=== PATIENT | female | born 1995 | race Caucasian/White ===

== ENCOUNTER 2021-02-11 21:09 | Emergency (ER) | payer OTHER ==
[~2021-02-11] VITALS: Ht 154.9 cm; Wt 128.8 kg
[2021-02-11 21:19] VITALS: BP 117/79
--- NOTE | 2021-02-11 23:10 | NUR ---
PT SEEN AND EVALUATED BY DR. HOROWITZ
[2021-02-11] MEDS ORDERED: NAPR-54 PO (23:12)
--- NOTE | 2021-02-11 23:25 | NUR ---
NO NURSING CARE PROVIDED TO THIS PATIENT.
== END 2021-02-11 23:26 | disposition home or self-care (01) ==
LOC: MED 21:09
DX: S86.811A Strain of other muscle(s) and tendon(s) at lower leg level, right leg, initial encounter (principal); Z88.5 Allergy status to narcotic agent; Z88.8 Allergy status to other drugs, medicaments and biological substances; Z79.899 Other long term (current) drug therapy; X50.0XXA Overexertion from strenuous movement or load, initial encounter; Y93.89 Activity, other specified; Y92.89 Other specified places as the place of occurrence of the external cause; Y99.8 Other external cause status
CPT/HCPCS: 73562; 99283

== ENCOUNTER 2021-02-19 15:51 | Emergency (ER) | payer OTHER ==
[~2021-02-19] VITALS: Ht 157.5 cm; Wt 128.8 kg
[~2021-02-19 15:51] MED LIST: NAPR-54 PO
[2021-02-19 15:55] VITALS: BP 112/66
[2021-02-19] MEDS ORDERED: DICL20GE TP (16:10)
[2021-02-19] MEDS ORDERED: CAPS1ADH5 TP (16:10)
[2021-02-19] MEDS ORDERED: KETOROLAC 60 MG/2 ML VIAL IM ONE (16:10)
[2021-02-19 16:39] VITALS: BP 112/66
== END 2021-02-19 16:40 | disposition home or self-care (01) ==
LOC: MED 15:51
DX: S86.811A Strain of other muscle(s) and tendon(s) at lower leg level, right leg, initial encounter (principal); J45.909 Unspecified asthma, uncomplicated; Z88.5 Allergy status to narcotic agent; Z88.8 Allergy status to other drugs, medicaments and biological substances; Z79.899 Other long term (current) drug therapy; X50.0XXA Overexertion from strenuous movement or load, initial encounter; Y93.89 Activity, other specified; Y92.89 Other specified places as the place of occurrence of the external cause; Y99.8 Other external cause status
CPT/HCPCS: 29505; 96372; 99283; J1885

== ENCOUNTER 2021-05-23 10:47 | Emergency (ER) | payer OTHER ==
[~2021-05-23] VITALS: Ht 157.5 cm; Wt 98.0 kg
[~2021-05-23 10:47] MED LIST changes: +CAPS1ADH5 TP; +DICL20GE TP
[2021-05-23 10:56] VITALS: BP 141/57
--- NOTE | 2021-05-23 11:02 | NUR ---
Pt ambulated to bed 09.
--- NOTE | 2021-05-23 12:10 | NUR ---
LABS WERE DRAWN AND SENT TO LAB.
--- NOTE | 2021-05-23 12:14 | NUR ---
Ultrasound at bedside.
[2021-05-23 12:24] LABS: BASOPHILS % (AUTO) 0.2 % (0.0-2.0); EOSINOPHILS # (AUTO) 0.1 K/uL (0-0.4); EOSINOPHILS % (AUTO) 0.7 % (0.0-4.0); HEMATOCRIT 36.3 % (36-48); HEMOGLOBIN 11.9 g/dL (12.0-16.0); LYMPHOCYTES # (AUTO) 2.9 K/uL (2.5-16.5); LYMPHOCYTES % (AUTO) 35.5 % (20.5-51.1); MEAN CORPUSCULAR HEMOGLOBIN 26 pg (27-31); MEAN CORPUSCULAR HGB CONC 33 g/dL (33-37); MEAN CORPUSCULAR VOLUME 80.3 fL (80-94); MONOCYTES # (AUTO) 0.6 K/uL (0.8-1.0); MONOCYTES % (AUTO) 6.8 % (1.7-9.3); NEUTROPHILS # (AUTO) 4.6 K/uL (1.8-7.7); NEUTROPHILS % (AUTO) 56.8 % (42.2-75.2); PLATELET COUNT (AUTO) 218 K/uL (140-450); RED BLOOD CELL COUNT(AUTO) 4.52 MIL/uL (4.20-5.40); RED CELL DISTRIBUTION WIDTH 14.7 % (11.6-13.7); WHITE BLOOD COUNT (AUTO) 8.2 K/uL (4.8-10.8)
[2021-05-23 12:39] LABS: ALBUMIN 3.2 g/dL (3.4-5.0); CARBON DIOXIDE 24.5 mmol/L (21-32); CREATININE 0.7 mg/dL (0.6-1.3); POTASSIUM 3.5 mmol/L (3.5-5.1); TOTAL BILIRUBIN 0.3 mg/dL (0.0-1.0)
--- NOTE | 2021-05-23 13:06 | NUR ---
25 Y/O F BIB SELF FROM HOME, PATIENT PRESENTS TO ED WITH C/O RLQ ABDOMINAL PAIN RADIATING TO RIGHT LOWER BACK X 3 DAYS. DENIES N/V/D; SKIN IS PINK/WARM/DRY; AAOX4 WITH EVEN AND STEADY GAIT; LUNGS CLEAR BL; HR EVEN AND REGULAR; PT DENIES ANY FEVER, CP, SOB, OR COUGH AT THIS TIME; PATIENT STATES PAIN OF 7/10 AT THIS TIME; VSS; PATIENT POSITIONED FOR COMFORT; HOB ELEVATED; BEDRAILS UP X2; BED DOWN. ER MD MADE AWARE OF PT STATUS. PMH: ASTHMA ALLERGY: CODEINE, METOCLOPRAMIDE
[2021-05-23 13:48] LABS: APPEARANCE,URINE HAZY (CLEAR); BILIRUBIN,URINE NEGATIVE (NEGATIVE); BLOOD, URINE NEGATIVE (NEGATIVE); COLOR,URINE YELLOW (YELLOW); LEUKOCYTE ESTERASE ,URINE NEGATIVE (NEGATIVE); NITRITE, URINE NEGATIVE (NEGATIVE); UGLUCOSE NEGATIVE (NEGATIVE)
[2021-05-23 14:10] LABS: RBC,URINE 0-5 /HPF (0-5); WBC,URINE 0-5 /HPF (0-5)
[2021-05-23 14:11] LABS: CALCIUM OXALATE CRYSTALS,UR 30-50 /HPF (None Seen)
[2021-05-23 14:13] VITALS: BP 141/57
--- NOTE | 2021-05-23 14:13 | NUR ---
PT WAS D/C BY DR. HOROWITZ, GIVEN ALL PAPERWORK NO SIGNATURE OBTAINED FROM PT. PER DR. HOROWITZ PT UNDERSTOOD D/C INSTRUCTIONS.
== END 2021-05-23 14:13 | disposition home or self-care (01) ==
LOC: MED 10:47
DX: N83.202 Unspecified ovarian cyst, left side (principal); J45.909 Unspecified asthma, uncomplicated; Z79.899 Other long term (current) drug therapy; Z88.5 Allergy status to narcotic agent; Z88.8 Allergy status to other drugs, medicaments and biological substances
CPT/HCPCS: 36415; 76856; 80053; 81001; 83690; 85025; 93976; 99284; Q0092

== ENCOUNTER 2021-06-01 00:25 | Emergency (ER) | payer OTHER ==
[~2021-06-01] VITALS: Ht 157.5 cm; Wt 117.9 kg
[2021-06-01 00:31] VITALS: BP 122/62
--- NOTE | 2021-06-01 00:35 | NUR ---
PT TAKEN TO BED 4
--- NOTE | 2021-06-01 00:38 | NUR ---
RECEIVED IN BED 4 WITH C/O SOB SINCE WEDNESDAY. RECEIVED 2ND PFIZER VACCINE ON WEDNESDAY. PT STATES SHE HAS BEEN USING HER INHALER FREQUENTLY. PMH = ASTHMA
--- NOTE | 2021-06-01 00:57 | NUR ---
Dr. Messer examining patient.
--- NOTE | 2021-06-01 01:06 | NUR ---
X-Ray at bedside.
--- NOTE | 2021-06-01 01:10 | NUR ---
X-RAY AT BEDSIDE
[2021-06-01] MEDS ORDERED: ALBU0.0912 IH (02:22)
--- NOTE | 2021-06-01 02:25 | NUR ---
Patient discharged with v/s stable. Written and verbal after care instructions given and explained. Patient alert, oriented and verbalized understanding of instructions. Ambulatory with steady gait. All questions addressed prior to discharge. ID band removed. Patient advised to follow up with PMD. Rx of PROVENTIL given. Patient educated on indication of medication including possible reaction and side effects. Opportunity to ask questions provided and answered.
== END 2021-06-01 02:25 | disposition home or self-care (01) ==
LOC: MED 00:25
DX: R06.02 Shortness of breath (principal); J45.909 Unspecified asthma, uncomplicated
CPT/HCPCS: 71045; 93005; 99283; Q0092

== ENCOUNTER 2021-09-10 15:30 | Emergency (ER) | payer OTHER ==
[~2021-09-10 15:30] MED LIST changes: +ALBU0.0912 IH
--- NOTE | 2021-09-10 15:50 | NUR ---
PATIENT LEFT WITHOUT BEING SEEN BY DR. HEARD. NO FURTHER CARE PROVIDED FOR PATIENT. LICHA DAHL CALLED PT PHONE 2 TIME WITH N/A 15:55 AND 16:07
== END 2021-09-10 15:50 | disposition left against medical advice (07) ==
LOC: MED 15:30
DX: Z53.21 Procedure and treatment not carried out due to patient leaving prior to being seen by health care provider (principal)

== ENCOUNTER 2021-11-08 17:40 | Emergency (ER) | payer OTHER ==
[~2021-11-08] VITALS: Ht 157.5 cm; Wt 104.8 kg
--- NOTE | 2021-11-08 17:53 | NUR ---
CALLED TO TRIAGE, NO ANSWER
[2021-11-08 17:55] VITALS: BP 128/62
[2021-11-08 19:51] VITALS: BP 128/62
--- NOTE | 2021-11-08 19:51 | NUR ---
Patient discharged with v/s stable. Written and verbal after care instructions given and explained. Patient verbalized understanding. Ambulatory with steady gait. All questions addressed prior to discharge. Advised to follow up with PMD. PT LEFT WITHOUT PAPERWORK
== END 2021-11-08 19:51 | disposition home or self-care (01) ==
LOC: MED 17:40
DX: S06.0X9A Concussion with loss of consciousness of unspecified duration, initial encounter (principal); J45.909 Unspecified asthma, uncomplicated; Z88.5 Allergy status to narcotic agent; Z88.8 Allergy status to other drugs, medicaments and biological substances; X58.XXXA Exposure to other specified factors, initial encounter; Y93.89 Activity, other specified; Y92.89 Other specified places as the place of occurrence of the external cause; Y99.8 Other external cause status
CPT/HCPCS: 99282

== ENCOUNTER 2021-11-26 16:08 | Emergency (ER) | payer OTHER ==
[~2021-11-26] VITALS: Ht 154.9 cm; Wt 99.8 kg
[2021-11-26 16:10] VITALS: BP 156/67
--- NOTE | 2021-11-26 16:15 | NUR ---
Patient ambulated to bed 3.
--- NOTE | 2021-11-26 16:27 | NUR ---
Mary cardona in ED - 11/26/21 at 1628 by [email or web address] Pt ambulated to bed 3 with even and steady gait.
--- NOTE | 2021-11-26 16:28 | NUR ---
Pt unable to provide a urine sample at this time. MD make aware and water was given.
--- NOTE | 2021-11-26 16:36 | NUR ---
MD Huerta at pt bedside for further evaluation.
[2021-11-26] MEDS ORDERED: KETOROLAC 60 MG/2 ML VIAL IM ONE (16:40)
[2021-11-26] MEDS ORDERED: ONDANSETRON 4 MG ODT PO ONE (16:40)
--- NOTE | 2021-11-26 16:58 | NUR ---
MD Huerta at pt bedside for re-evaluation.
--- NOTE | 2021-11-26 17:07 | NUR ---
AFTER TALKING TO MD REGARDING PAIN MEDICATION, PT REFUSED TO TAKE MEDICATION STATING "I COULD TREAT THE PAIN AT HOME". PT THEN ELOPED.
--- NOTE | 2021-11-26 17:11 | NUR ---
CALLED PT PT VAL TO COME BACK TO HOSPITAL.
--- NOTE | 2021-11-26 17:28 | NUR ---
PT ARRIVED AT HOSPITAL AND WALKED TO BED 3.
--- NOTE | 2021-11-26 17:29 | NUR ---
AT PT BEDSIDE.
--- NOTE | 2021-11-26 17:38 | NUR ---
US AT PT BEDSIDE.
[2021-11-26 18:43] LABS: BASOPHILS % (AUTO) 0.4 % (0.0-2.0); EOSINOPHILS # (AUTO) 0.1 K/uL (0-0.4); EOSINOPHILS % (AUTO) 0.9 % (0.0-4.0); HEMATOCRIT 37.8 % (36-48); HEMOGLOBIN 12.6 g/dL (12.0-16.0); LYMPHOCYTES # (AUTO) 2.6 K/uL (2.5-16.5); MEAN CORPUSCULAR HEMOGLOBIN 28 pg (27-31); MEAN CORPUSCULAR HGB CONC 34 g/dL (33-37); MEAN CORPUSCULAR VOLUME 84.8 fL (80-94); MONOCYTES # (AUTO) 0.6 K/uL (0.8-1.0); MONOCYTES % (AUTO) 6.9 % (1.7-9.3); NEUTROPHILS # (AUTO) 5.1 K/uL (1.8-7.7); NEUTROPHILS % (AUTO) 60.8 % (42.2-75.2); PLATELET COUNT (AUTO) 212 K/uL (140-450); RED BLOOD CELL COUNT(AUTO) 4.45 MIL/uL (4.20-5.40); RED CELL DISTRIBUTION WIDTH 14.3 % (11.6-13.7); WHITE BLOOD COUNT (AUTO) 8.4 K/uL (4.8-10.8)
--- NOTE | 2021-11-26 18:54 | NUR ---
MD BRADLEY AT PT BEDSIDE.
[2021-11-26 19:01] LABS: APPEARANCE,URINE CLEAR (CLEAR); BILIRUBIN,URINE NEGATIVE (NEGATIVE); BLOOD, URINE NEGATIVE (NEGATIVE); COLOR,URINE YELLOW (YELLOW); LEUKOCYTE ESTERASE ,URINE NEGATIVE (NEGATIVE); NITRITE, URINE NEGATIVE (NEGATIVE); PH,URINE 7.5 (5.0-9.0); UGLUCOSE NEGATIVE (NEGATIVE)
--- NOTE | 2021-11-26 19:13 | NUR ---
REPORT GIVEN TO SENIOR [employer] ADMINISTRATOR RN FOR TRANSFER OF CARE
[2021-11-26 19:20] VITALS: BP 122/70
--- NOTE | 2021-11-26 19:20 | NUR ---
Patient discharged with v/s stable. Written and verbal after care instructions given and explained. Patient verbalized understanding. Ambulatory with steady gait. All questions addressed prior to discharge. Advised to follow up with PMD.
== END 2021-11-26 19:20 | disposition home or self-care (01) ==
LOC: MED 16:08
DX: O34.10 Maternal care for benign tumor of corpus uteri, unspecified trimester (principal); J45.909 Unspecified asthma, uncomplicated; F17.200 Nicotine dependence, unspecified, uncomplicated; Z79.899 Other long term (current) drug therapy; Z88.5 Allergy status to narcotic agent; Z88.8 Allergy status to other drugs, medicaments and biological substances
CPT/HCPCS: 36415; 76817; 81003; 81025; 84702; 85025; 86900; 86901; 99284; Q0092; 81002

== ENCOUNTER 2022-10-30 19:13 | Emergency (ER) | payer OTHER ==
[~2022-10-30] VITALS: Ht 154.9 cm
[2022-10-30 19:18] VITALS: BP 120/63
--- NOTE | 2022-10-30 19:32 | NUR ---
PT AMBULATE TO ROOM 5
--- NOTE | 2022-10-30 19:52 | NUR ---
27YR OLD FEMALE BIB SELF BIB PELVIC/ABD PAIN X 2DAYS. PT HAD IUD REMOVED BY HER DOCTOR TODAY. DENIES VAG BLEEDING DENIES SOB CP . SHARP 9/10 PAIN NON RADIATING. PT IS A&OX4 SKIN WARM AND DRY HOB ELEVATED. BED AT LOWEST POSITION SIDE RAILS UP X1. CODEINE METOCLOPRAMIDE ASTHMA
[2022-10-30 20:19] LABS: BASOPHILS % (AUTO) 0.6 % (0.0-2.0); EOSINOPHILS # (AUTO) 0.1 K/uL (0-0.4); EOSINOPHILS % (AUTO) 1.9 % (0.0-4.0); HEMATOCRIT 37.3 % (36-48); HEMOGLOBIN 12.9 g/dL (12.0-16.0); LYMPHOCYTES # (AUTO) 2.6 K/uL (2.5-16.5); LYMPHOCYTES % (AUTO) 34.2 % (20.5-51.1); MEAN CORPUSCULAR HEMOGLOBIN 29 pg (27-31); MEAN CORPUSCULAR HGB CONC 35 g/dL (33-37); MEAN CORPUSCULAR VOLUME 83.1 fL (80-94); MONOCYTES # (AUTO) 0.5 K/uL (0.8-1.0); NEUTROPHILS # (AUTO) 4.4 K/uL (1.8-7.7); NEUTROPHILS % (AUTO) 57.3 % (42.2-75.2); PLATELET COUNT (AUTO) 248 K/uL (140-450); RED BLOOD CELL COUNT(AUTO) 4.49 MIL/uL (4.20-5.40); RED CELL DISTRIBUTION WIDTH 12.2 % (11.6-13.7); WHITE BLOOD COUNT (AUTO) 7.6 K/uL (4.8-10.8)
--- NOTE | 2022-10-30 20:29 | NUR ---
ULTLRASOUND AT BEDSIDE
[2022-10-30 20:41] LABS: ANION GAP 11.9 (8-16); CARBON DIOXIDE 26.7 mmol/L (21-32); CREATININE 0.8 mg/dL (0.6-1.3); POTASSIUM 3.6 mmol/L (3.5-5.1)
--- NOTE | 2022-10-30 20:45 | NUR ---
URINE OBTAINED AND SENT TO LAB
[2022-10-30 20:52] LABS: ALBUMIN 3.4 g/dL (3.4-5.0); TOTAL BILIRUBIN 0.2 mg/dL (0.0-1.0)
[2022-10-30 21:02] LABS: APPEARANCE,URINE CLEAR (CLEAR); BILIRUBIN,URINE NEGATIVE (NEGATIVE); BLOOD, URINE NEGATIVE (NEGATIVE); COLOR,URINE YELLOW (YELLOW); LEUKOCYTE ESTERASE ,URINE NEGATIVE (NEGATIVE); NITRITE, URINE NEGATIVE (NEGATIVE); UGLUCOSE NEGATIVE (NEGATIVE)
--- NOTE | 2022-10-30 22:39 | NUR ---
PT STATES SHE WILL WAIT IN LOBBY.
[2022-10-30 23:08] VITALS: BP 120/63
== END 2022-10-30 23:08 | disposition home or self-care (01) ==
LOC: MED 19:13
DX: O34.81 Maternal care for other abnormalities of pelvic organs, first trimester (principal); N83.202 Unspecified ovarian cyst, left side; J45.909 Unspecified asthma, uncomplicated; Z3A.01 Less than 8 weeks gestation of pregnancy; Z79.1 Long term (current) use of non-steroidal anti-inflammatories (NSAID); Z88.8 Allergy status to other drugs, medicaments and biological substances
CPT/HCPCS: 36415; 76817; 80053; 81003; 81025; 84702; 85025; 86900; 86901; 99284; Q0092

== ENCOUNTER 2022-11-01 15:24 | Emergency (ER) | payer OTHER ==
[~2022-11-01] VITALS: Ht 157.5 cm; Wt 122.5 kg
[2022-11-01 15:32] VITALS: BP 129/76
[2022-11-01 17:00] LABS: APPEARANCE,URINE CLEAR (CLEAR); BILIRUBIN,URINE NEGATIVE (NEGATIVE); BLOOD, URINE NEGATIVE (NEGATIVE); COLOR,URINE YELLOW (YELLOW); LEUKOCYTE ESTERASE ,URINE NEGATIVE (NEGATIVE); NITRITE, URINE NEGATIVE (NEGATIVE); PH,URINE 6.5 (5.0-9.0); UGLUCOSE NEGATIVE (NEGATIVE)
[2022-11-01] MEDS ORDERED: PREN1SGL93 PO (17:58)
[2022-11-01] MEDS ORDERED: ACET-10509 PO (17:58)
== END 2022-11-01 18:05 | disposition home or self-care (01) ==
LOC: MED 15:24
DX: O34.81 Maternal care for other abnormalities of pelvic organs, first trimester (principal); N83.202 Unspecified ovarian cyst, left side; J45.909 Unspecified asthma, uncomplicated; Z3A.01 Less than 8 weeks gestation of pregnancy; Z88.5 Allergy status to narcotic agent; Z88.8 Allergy status to other drugs, medicaments and biological substances; Z79.899 Other long term (current) drug therapy
CPT/HCPCS: 36415; 76817; 81003; 81025; 84702; 99284; Q0092

== ENCOUNTER 2023-04-22 18:37 | Emergency (ER) | payer OTHER ==
[~2023-04-22] VITALS: Ht 154.9 cm; Wt 117.9 kg
[~2023-04-22 18:37] MED LIST changes: +ACET-10509 PO; +PREN1SGL93 PO
[2023-04-22 18:52] VITALS: BP 116/67; PULSE 89; RESP 20; TEMP 98; O2SAT 100
[2023-04-22] MEDS ORDERED: ACETAMINOPHEN EXTRA STRENGTH 500 MG TAB PO ONE (21:55)
== END 2023-04-22 21:05 | disposition left against medical advice (07) ==
LOC: MED 18:37
DX: M79.672 Pain in left foot (principal); M79.641 Pain in right hand; M25.551 Pain in right hip; J45.909 Unspecified asthma, uncomplicated; Z88.5 Allergy status to narcotic agent; Z88.8 Allergy status to other drugs, medicaments and biological substances; Z79.899 Other long term (current) drug therapy; W20.8XXA Other cause of strike by thrown, projected or falling object, initial encounter; Y93.89 Activity, other specified; Y92.89 Other specified places as the place of occurrence of the external cause; Y99.8 Other external cause status
CPT/HCPCS: 99281

== ENCOUNTER 2023-04-23 22:34 | Emergency (ER) | payer OTHER ==
[~2023-04-23] VITALS: Ht 154.9 cm; Wt 122.5 kg
[2023-04-23 23:25] VITALS: BP 110/75; PULSE 94; RESP 16; TEMP 97.4; O2SAT 100
== END 2023-04-24 00:04 | disposition left against medical advice (07) ==
LOC: MED 22:34
DX: M25.531 Pain in right wrist (principal); M79.641 Pain in right hand; M25.511 Pain in right shoulder; Z53.21 Procedure and treatment not carried out due to patient leaving prior to being seen by health care provider; Y04.0XXA Assault by unarmed brawl or fight, initial encounter; Y93.89 Activity, other specified; Y92.89 Other specified places as the place of occurrence of the external cause; Y99.8 Other external cause status
CPT/HCPCS: 99281

== ENCOUNTER 2023-06-20 02:13 | Emergency (ER) | payer OTHER ==
[~2023-06-20] VITALS: Ht 157.5 cm; Wt 126.7 kg
[2023-06-20 02:15] VITALS: BP 108/66; PULSE 77; RESP 17; TEMP 97.6; O2SAT 100
[2023-06-20 04:22] LABS: BILIRUBIN,URINE 1+ (NEGATIVE); BLOOD, URINE NEGATIVE (NEGATIVE); COLOR,URINE YELLOW (YELLOW); LEUKOCYTE ESTERASE ,URINE NEGATIVE (NEGATIVE); NITRITE, URINE NEGATIVE (NEGATIVE); PROTEIN,URINE NEGATIVE (NEGATIVE); UGLUCOSE NEGATIVE (NEGATIVE); UROBILINOGEN,URINE 0.2 EU/dL (0.2 - 1)
[2023-06-20 05:01] LABS: APPEARANCE,URINE SLIGHTLY HAZY (CLEAR)
[2023-06-20 05:04] LABS: BACTERIA,URINE 1+ /HPF (None Seen); MUCUS,URINE 2+ /LPF (None Seen); RBC,URINE NONE SEEN /HPF (0-5); WBC,URINE 0-5 /HPF (0-5)
[2023-06-20 05:22] LABS: ICTOTEST NEGATIVE (NEGATIVE)
== END 2023-06-20 04:05 | disposition left against medical advice (07) ==
LOC: MED 02:13
DX: O46.91 Antepartum hemorrhage, unspecified, first trimester (principal); Z53.21 Procedure and treatment not carried out due to patient leaving prior to being seen by health care provider; Z3A.08 8 weeks gestation of pregnancy
CPT/HCPCS: 81001; 81025; 99281

== ENCOUNTER 2023-07-26 11:40 | Emergency (ER) | payer BC, OTHER ==
[~2023-07-26] VITALS: Ht 157.5 cm; Wt 90.7 kg
[2023-07-26 12:22] VITALS: BP 108/66; PULSE 89; RESP 18; TEMP 97; O2SAT 98
[2023-07-26 13:47] VITALS: BP 108/66; PULSE 89; RESP 18; TEMP 97; O2SAT 98
== END 2023-07-26 13:48 | disposition home or self-care (01) ==
LOC: MED 11:40
DX: S60.221A Contusion of right hand, initial encounter (principal); J45.909 Unspecified asthma, uncomplicated; Z79.899 Other long term (current) drug therapy; Z79.1 Long term (current) use of non-steroidal anti-inflammatories (NSAID); Z88.5 Allergy status to narcotic agent; W23.0XXA Caught, crushed, jammed, or pinched between moving objects, initial encounter; Y93.89 Activity, other specified; Y92.89 Other specified places as the place of occurrence of the external cause; Y99.8 Other external cause status
CPT/HCPCS: 73130; 99283